=== PATIENT | female | born 1995 | race Caucasian/White ===

== ENCOUNTER 2017-12-02 13:12 | Emergency (ER) | payer BC ==
[~2017-12-02] VITALS: Ht 175.3 cm; Wt 61.2 kg
[2017-12-02] MEDS ORDERED: ZITHROMAX500 MG (13:47)
[2017-12-02] MEDS ORDERED: LORATADINE5 MG/5 ML (13:48)
== END 2017-12-02 14:33 | disposition home or self-care (01) ==
LOC: ER 13:12
DX: H66.91 Otitis media, unspecified, right ear (principal)